=== PATIENT | female | born 1935 | race Caucasian/White ===

== ENCOUNTER 2017-09-05 10:47 | Outpatient (CLI) | payer MEDICARE, BC ==
--- NOTE | 2017-09-05 13:15 | SJPRAD ---
ONE VIEW CHEST RIGHT RIBS: History: Fall, pain. FINDINGS: One view chest. Atherosclerosis of the aorta. Normal cardiac silhouette. Pulmonary vessels and pulmon galen hilum are normal. Costophrenic angles are clear. There appears to be mass projecting over the mid mediastinal silhouette which may represent osteophyte. The possibility of a mediastinal mass cannot be excluded. Better interrogation with CT is recommended. There is no pneumothorax. There are no osse ous abnormalities. Scoliotic curvature of the spine is noted. Right ribs three views: Displaced fractures involving the anterolateral right 9th, 10th, and 11th rib s. Possible fracture involving the posterior right 12th rib. No associated pneumothorax. IMPRESSION: 1. Right rib fractures. No pneumothorax. 2. Possible mass projecting over the mediastinum. Chest CT is recommended. Code T. POS: SJ
== END 2017-09-05 10:48 | disposition home or self-care (01) ==
LOC: MWLC RAD 10:47
PROVIDERS: ATTEND Internal Medicine Geriatric Medicine
DX: M54.9 Dorsalgia, unspecified (principal); S22.31XD Fracture of one rib, right side, subsequent encounter for fracture with routine healing

== ENCOUNTER 2019-01-23 12:45 | Outpatient (CLI) | payer MEDICARE, BC ==
--- NOTE | 2019-01-23 13:15 | RAD ---
Right RIBS 3 views HISTORY: Fall. Right rib injury. FINDINGS: Mildly displaced fractures involve the posterolateral aspect of the right 10th, 11th, and 1 2th ribs. No evidence of pneumothorax. IMPRESSION: Right lower posterior rib fractures.
--- NOTE | 2019-01-23 13:17 | RAD ---
Chest 2 views HISTORY: Dementia. Dyspnea. Recent fall. FINDINGS: Cardiac silhouette and pulmonary vasculature upper limits of normal. Mediastinum is midline . Calcification in the aorta. Lungs are hyperinflated. No lobar consolidation, pneumothorax, or pleural fluid. Right lower posterior rib fractures not well visualized, better detailed on dedicated rib exam. IMPRESSION: Atherosclerosis and other chronic-type findings. No active cardiopulmonary abnormalities are demonstrated. Please see separate detailed report regarding right lower rib fractures.
== END 2019-01-23 12:46 | disposition home or self-care (01) ==
LOC: BICRAD 12:45
PROVIDERS: ATTEND Internal Medicine Geriatric Medicine
DX: F02.81 Dementia in other diseases classified elsewhere, unspecified severity, with behavioral disturbance (principal); R07.81 Pleurodynia; R41.82 Altered mental status, unspecified; S22.41XA Multiple fractures of ribs, right side, initial encounter for closed fracture; I70.90 Unspecified atherosclerosis
CPT/HCPCS: 36415; 71046; 80053; 84439; 84443; 85025

== ENCOUNTER 2019-12-08 17:34 | Inpatient (IN) | payer MEDICARE, BC ==
[2019-12-08 18:05] LABS: Mean Corpuscular Hemoglobin 32.9 pg (27.0-31.0); Mean Platelet Volume 9.6 fL (7.4-10.4); Platelet Count 245 thou/uL (130-400); RBC Distribution Width 12.5 % (11.5-14.5); Red Blood Cell (RBC) Count 4.56 mill/uL (4.20-5.40); White Blood Cell (WBC) Count 21.9 thou/uL (4.8-10.8)
--- NOTE | 2019-12-08 18:12 | RAD ---
EXAM: Portable chest PROVIDED CLINICAL HISTORY: Fever COMPARISON: 01/23/2019 FINDINGS: Cardiac and mediastinal silhouette is within normal limits. No focal consolidation, pleural fluid or pneumothorax evident. IMPRESSION: No evidence for an acute cardiopulmonary process.
[2019-12-08 18:25] LABS: Band 20 % (5-11); Lymphocytes 3 % (21-51); MDiff Complete? YES; Macrocytosis SLIGHT = 6-15 cells (100X) (0-5/hpf); Monocytes 7 % (0-10); Neutrophil 66 % (42-75); Platelet Morphology Comment Appears Adequate; Reactive Lymphocytes 4 % (0-10)
[2019-12-08 18:31] LABS: ALT (SGPT) 20 U/L (8-55); AST (SGOT) 39 U/L (5-34); Albumin 3.8 g/dL (3.4-4.8); Alkaline Phosphatase 72 U/L (40-110); Anion Gap 17 mmol/L (10-20); BUN (Urea Nitrogen) 26 mg/dL (9.8-20.1); Bilirubin, Total 0.6 mg/dL (0.2-1.2); Calc. Creatinine Clearance 0 mL/min (70-130); Calcium 9.5 mg/dL (7.8-10.44); Carbon Dioxide 24 mmol/L (23-31); Chloride 104 mmol/L (98-107); Estimated GFR-MDRD 36; Globulin 3.9 g/dL (2.4-3.5); Glucose 239 mg/dL (83-110); Potassium 4.4 mmol/L (3.5-5.1); Protein, Total 7.7 g/dL (6.0-8.3); Sodium 141 mmol/L (136-145)
--- NOTE | 2019-12-08 19:00 | CT ---
Exam: CT brain PROVIDED CLINICAL HISTORY: Altered mental status COMPARISON: None FINDINGS: The ventricular system is normal in size and morphology. No evidence for intracranial hemorrhage or mass effect. The extracranial soft tissues and osseous structures demonstrate no evidence for an acute abnormality. Chronic microvascular ischemic changes are seen involving the cerebral white matte r. IMPRESSION: No evidence for intracranial hemorrhage or mass effect.
[2019-12-08] MEDS ORDERED: cefTRIAXone\\ROCEPHIN 2 GM VIAL ONE (19:07)
[2019-12-08 19:48] LABS: Bilirubin Negative (Negative); Blood, Urine Negative (Negative); Clarity Clear (Clear); Glucose, Urine (Dipstick) 500 mg/dL (Negative); Leukocyte Negative Leu/uL (Negative); Nitrite Negative (Negative); Protein, Urine (Dipstick) 10 mg/dL (Neg-Trace); Urobilinogen Normal mg/dL (Less than 2)
[2019-12-08 20:55] LABS: Lactic Acid 2.6 mmol/L (0.5-2.2)
[2019-12-08] MEDS ORDERED: Azithromycin 500 MG VIAL ONE ×2 (21:19→21:21)
[2019-12-08] MEDS ORDERED: Acetaminophen 325 MG TAB PO PRN ×2 (22:44→22:47)
[2019-12-08] MEDS ORDERED: Ondansetron PF 4 MG/2 ML Vial IVP PRN (22:44)
[2019-12-08] MEDS ORDERED: Ondansetron ODT 4 MG TAB SL PRN (22:44)
[2019-12-08] MEDS ORDERED: hydrALAZINE 20 MG/ML VIAL SLOW IVP PRN (22:47)
[2019-12-08 23:00] VITALS: BMI 20.5
[2019-12-08] MEDS: Sodium Chloride 0.9% 1,000 ML IV SCH (23:36)
--- NOTE | 2019-12-09 00:15 | HP ---
PRIMARY CARE PHYSICIAN: Sky Floyd MD CHIEF COMPLAINT: Generalized weakness. HISTORY OF PRESENT ILLNESS: The history of present illness is taken entirely from the patient's and daughter who are at the bedside. The patient has advanced Alzheimer disease as well as severe hearing loss and as a result, is unable to give me a history. The patient's says that usually he will get her up at around 9 o'clock in the morning and then she will make her way to the kitchen to sit down to eat breakfast, but this time when she got up, she could barely stand up and she could barely walk. He managed to help her onto the commode and then later he brought her in to the kitchen. There, she would not eat or drink and she looked like "a dishrag." He took her back to the bathroom, where she seemed to be extremely weak. He called Dr. Floyd and she told him to bring her into the hospital. He noticed that she seemed to be leaning to the left side and that she has been having this cough that just started today. No fevers, no chills that they are aware of. No nausea, no vomiting, no diarrhea. When she was in the emergency room, she was found to have leukocytosis as well as an elevated creatinine and she is being admitted for probable pneumonia despite a normal chest x-ray. REVIEW OF SYSTEMS: All systems were reviewed and are negative except for that mentioned in the history of present illness. PAST MEDICAL HISTORY: Significant for Alzheimer disease, hypertension, and hypercholesterolemia. PAST SURGICAL HISTORY: Hysterectomy. ALLERGIES: KINA INHIBITOR, LISINOPRIL, AND GUAIFENESIN. SOCIAL HISTORY: She is a former smoker. She used to smoke about a pack a day for 40 years. Denies any alcohol use. She is , has 4 children and her states that she is a do not resuscitate. FAMILY HISTORY: Significant for familiar tremor, cancer in both sisters, unknown type. CURRENT MEDICATIONS: Include; 1. Alendronate 70 mg once weekly. 2. Astelin nasal spray daily. 3. Aricept 10 mg daily. 4. Aspirin 81 mg daily. 5. Levothyroxine 75 mcg p.o. daily. 6. Melatonin 10 mg at bedtime. 7. Metoprolol succinate 25 mg 1/2 tablet twice a day. 8. Namenda 10 mg twice a day. 9. Seroquel 25 mg twice a day. PHYSICAL EXAMINATION: GENERAL: She is awake and alert. She is very frail in appearance, unable to assess orientation. VITAL SIGNS: Blood pressure was 143/107, heart rate 86, respiratory rate of 22, temperature is 97.6, O2 saturation was 95% on room air. HEENT: Her pupils are equal, round, and reactive. Extraocular muscles are intact. Her sclerae anicteric. Throat, she has dry mucous membranes, but no erythema. She is edentulous. NECK: There is no adenopathy. No bruits. LUNGS: She has bilateral rhonchi as well as some rales. CARDIOVASCULAR: She has a normal S1 and S2. There is no S3 or S4. No murmurs, clicks, or rubs. ABDOMEN: Obese, it is soft, nontender, and nondistended. Positive for bowel sounds. There is no rebound, no guarding. No organomegaly. EXTREMITIES: She has trace edema. No calf tenderness. NEUROLOGICAL: Exam is nonfocal. SKIN AND INTEGUMENT: No skin changes. No rash. LABORATORY DATA: White blood cell count is 12.9, hemoglobin 15, hematocrit is 46.8, and platelet count is 245. Sodium 141, potassium 4.4, chloride is 104, CO2 is 25, BUN of 26, creatinine 1.4, glucose is 239. Urinalysis is essentially negative. On her chest x-ray, heart size is normal. She did have some flattening of her diaphragms potentially consistent with COPD, but possibly increased pulmonary vascular markings. This is by my reading. She had a CT scan of the brain, which was negative. ASSESSMENT: This is a pleasant 84-year-old female, who presents with generalized weakness, likely early pneumonia and early sepsis and acute kidney injury. 1. Bronchitis/early pneumonia. She has not had any recent hospitalizations. Therefore, we will go ahead and treat her for a community-acquired pneumonia or organisms and place her on azithromycin and Rocephin, DuoNebs as needed and gentle IV hydration. 2. Acute kidney injury. Again, gentle hydration and recheck her chemistry panel in the a.m. 3. Hypertension. Reconcile and restart her home medications as well as p.r.n. medicines. She will be also placed on DVT and GI prophylaxis and repeat a chest x-ray in the a.m.. Job ID: [id number]
[2019-12-09 05:35] LABS: Anion Gap 10 mmol/L (10-20); BUN (Urea Nitrogen) 18 mg/dL (9.8-20.1); Calc. Creatinine Clearance 42 mL/min (70-130); Carbon Dioxide 27 mmol/L (23-31); Chloride 110 mmol/L (98-107); Estimated GFR-MDRD 62; Glucose 118 mg/dL (83-110); Potassium 3.3 mmol/L (3.5-5.1); Sodium 144 mmol/L (136-145)
[2019-12-09 06:43] LABS: Band 11 % (5-11); Hemoglobin 12.3 g/dL (12.0-16.0); Lymphocytes 15 % (21-51); MDiff Complete? YES; Mean Corpuscular HGB CONC 31.6 g/dL (32.0-36.0); Mean Corpuscular Hemoglobin 32.1 pg (27.0-31.0); Mean Platelet Volume 9.6 fL (7.4-10.4); Neutrophil 74 % (42-75); Platelet Count 210 thou/uL (130-400); RBC Distribution Width 12.4 % (11.5-14.5); Red Blood Cell (RBC) Count 3.83 mill/uL (4.20-5.40); White Blood Cell (WBC) Count 15.5 thou/uL (4.8-10.8)
--- NOTE | 2019-12-09 07:35 | RAD ---
CHEST 1 VIEW: Date: 12/09/2019 INDICATION: History of cough. COMPARISON: Prior study dated 12/08/2019. FINDINGS: Chronic lung changes and cardiomegaly are similar appearing. No air space consolidation or pleural ef fusion is evident. No acute osseous abnormality is noted. IMPRESSION: Stable exam. POS: BH
[2019-12-09] MEDS: Heparin 5,000 UNITS/ML VIAL SC SCH ×3 (08:56→21:00)
[2019-12-09] MEDS ORDERED: Famotidine 20 MG TAB PO SCH (09:00)
[2019-12-09] MEDS: Sodium Chloride 0.9% 1,000 ML IV SCH (11:45)
--- NOTE | 2019-12-09 17:56 | PDOC.HOSPP ---
- Subjective Encounter Date: 12/09/19 Encounter Time: 17:55 Subjective: f/u for suspected PNA/bronchitis on Rocephin/Zithromax. - Objective Vital Signs & Weight: Vital Signs (12 hours) Temp Pulse Resp BP Pulse Ox 12/09/19 15:08 99.0 F 89 16 122/68 92 L 12/09/19 14:24 75 16 12/09/19 11:31 98.6 F 78 16 122/77 95 12/09/19 08:56 96 12/09/19 08:10 98.9 F 86 16 110/70 93 L 12/09/19 07:34 74 20 Weight Weight 123 lb 1 oz I&O: 12/08/19 12/09/19 12/10/19 06:59 06:59 06:59 Intake Total 600 387 Output Total 600 121 Balance 0 266 Result Diagrams: 12/09/19 04:47 12/09/19 04:47 Additional Labs: Microbiology 12/08/19 19:23 Nasal swab Influenza Types A,B Direct EIA - Final 12/08/19 19:23 Urine Straight Catheter Urine Culture - Preliminary NO GROWTH AT 12 HOURS 12/08/19 17:59 Venous blood - Left Arm Blood Culture - Preliminary Specimen has been received and culture in progress. No Growth to date. 12/08/19 17:55 Venous blood - Left Hand Blood Culture - Preliminary Specimen has been received and culture in progress. No Growth to date. Laboratory Tests 12/08/19 12/08/19 12/08/19 17:59 17:59 17:59 WBC 21.9 H Neutrophils % (Manual) 66 Band Neuts % (Manual) 20 H Potassium 4.4 BUN 26 H Creatinine 1.41 H Lactic Acid 3.6 H 12/08/19 12/09/19 20:31 04:47 WBC Neutrophils % (Manual) 74 Band Neuts % (Manual) 11 Potassium BUN Creatinine Lactic Acid 2.6 H Radiology Reviewed by me: Yes (PCXR - chronic changes, no acute infiltrate) Hospitalist ROS - Medication Medications: Active Medications Generic Name Dose Route Start Last Admin Trade Name Freq PRN Reason Stop Dose Admin Albuterol/Ipratropium 3 ml 12/09/19 01:00 12/09/19 14:24 Duoneb NEB 3 ml [id number] TANYA Administration Heparin Sodium (Porcine) 5,000 units 12/09/19 09:00 12/09/19 14:08 Heparin SC 5,000 units TID TANYA Administration Sodium Chloride 1,000 mls @ 75 mls/hr 12/08/19 23:00 12/09/19 11:45 Normal Saline 0.9% IV 1,000 mls .[id number] TANYA Administration - Exam General Appearance: awake alert Eye: PERRL, anicteric sclera ENT: normocephalic atraumatic, no oropharyngeal lesions Neck: supple, symmetric, no JVD, no thyromegaly, no lymphadenopathy Heart: RRR, no murmur, no gallops, no rubs, normal peripheral pulses Respiratory - other findings: diminished in bilat bases, occasional wheeze Gastrointestinal: soft, non-tender, non-distended, normal bowel sounds, no palpable masses Extremities: no cyanosis, no clubbing, no edema Skin: normal turgor, no lesions Neurological: no new deficit Neurological - other findings: aphasic, hearing loss(chronic) Musculoskeletal: generalized weakness Psychiatric: oriented to person Hosp A/P (1) CAP (community acquired pneumonia) Code(s): J18.9 - PNEUMONIA, UNSPECIFIED ORGANISM Status: Acute Qualifiers: Laterality: unspecified laterality Qualified Code(s): J18.9 - Pneumonia, unspecified organism Plan: Continue Rocephin/Zithromax, Duonebs, O2 supplementation (2) Acute respiratory failure with hypoxia Code(s): J96.01 - ACUTE RESPIRATORY FAILURE WITH HYPOXIA Status: Acute Plan: Secondary to #1, continue Duonebs/O2 (3) Acute kidney injury superimposed on CKD Code(s): N17.9 - ACUTE KIDNEY FAILURE, UNSPECIFIED; N18.9 - CHRONIC KIDNEY DISEASE, UNSPECIFIED Status: Acute Plan: Improved, continue IVF's, avoid nephrotoxic meds and limit contrast, serial creatinine (4) Hypokalemia Code(s): E87.6 - HYPOKALEMIA Status: Acute Plan: KCL 40meq BID - Plan plan discussed w/ family, continue antibiotics, PT/OT, manager social media, respiratory therapy, out of bed/ambulate, DVT proph w/SCDs Stable currently Continue Rocephin/Zithromax Continue Duonebs Continue IVF's PT evaluation for functional assessment AM lab: BMP, CBC
[2019-12-09] MEDS: Azelastine 137 MCG/Spray 30 ML NS SCH (20:58)
[2019-12-09] MEDS: cefTRIAXone\\ROCEPHIN 1 GM in Sodium Chloride 0.9% 100 ML IVPB SCH (20:58)
[2019-12-09] MEDS: Melatonin 3 MG TAB PO SCH (20:59)
[2019-12-09] MEDS: Azithromycin 500 MG in Sodium Chloride 0.9% 250 ML 250 ML IVPB SCH (20:59)
[2019-12-09] MEDS: Donepezil HCl 10 MG TAB PO SCH (21:00)
[2019-12-10] MEDS: Benzonatate 100 MG CAP PO PRN ×3 (01:09→15:36)
[2019-12-10] MEDS: Sodium Chloride 0.9% 1,000 ML IV SCH ×2 (03:43→15:36)
[2019-12-10] MEDS: Levothyroxine Sodium 75 MCG TAB PO SCH (05:19)
[2019-12-10 05:33] LABS: Band 3 % (5-11); Eosinophils 3 % (0-10); Hemoglobin 11.8 g/dL (12.0-16.0); Lymphocytes 15 % (21-51); MDiff Complete? YES; Mean Corpuscular HGB CONC 30.7 g/dL (32.0-36.0); Monocytes 11 % (0-10); Neutrophil 68 % (42-75); Platelet Count 179 thou/uL (130-400); RBC Distribution Width 12.5 % (11.5-14.5); Red Blood Cell (RBC) Count 3.69 mill/uL (4.20-5.40); White Blood Cell (WBC) Count 12.9 thou/uL (4.8-10.8)
[2019-12-10 05:51] LABS: Anion Gap 12 mmol/L (10-20); BUN (Urea Nitrogen) 11 mg/dL (9.8-20.1); Calc. Creatinine Clearance 46 mL/min (70-130); Carbon Dioxide 23 mmol/L (23-31); Chloride 111 mmol/L (98-107); Estimated GFR-MDRD 68; Glucose 94 mg/dL (83-110); Potassium 3.8 mmol/L (3.5-5.1); Sodium 142 mmol/L (136-145)
[2019-12-10] MEDS: Azelastine 137 MCG/Spray 30 ML NS SCH ×2 (08:51→20:01)
[2019-12-10] MEDS: Heparin 5,000 UNITS/ML VIAL SC SCH ×3 (08:51→20:02)
[2019-12-10] MEDS: Multivitamin W/ Minerals 1 TAB PO SCH (08:53)
[2019-12-10] MEDS: Aspirin 81 mg Enteric Coated Tablet PO SCH (08:53)
[2019-12-10] MEDS: Famotidine 20 MG TAB PO SCH (08:53)
--- NOTE | 2019-12-10 14:45 | PQF ---
JACK KIRKLANDYOLI DO [id number] SURG A- [id number] CLINICAL DOCUMENTATION IMPROVEMENT CLARIFICATION FORM: ICD-10 Updated PLEASE DO AN ADDENDUM TO THE PROGRESS NOTE WITH ANY DOCUMENTATION UPDATES OR ADDITIONS AND CARRY THROUGH TO DC SUMMARY. THANK YOU. DATE: 11/11/2019 ATTN: DR. Henrique JOSEPH Please exercise your independent, professional judgment in responding to the clarification form. Clinical indicators are provided on the bottom of this form for your review. Please check appropriate box(es): [ x ] Sepsis [ ] Severe sepsis with acute organ dysfunction of: (Examples: respiratory failure, encephalopathy, acute kidney failure, other) [ ] Septic Shock [ ] Other diagnosis [ ] Unable to determine In addition, please specify: Present on Admission (POA): [ x ] Yes [ ] No [ ] Unable to determine For continuity of documentation, please document condition throughout progress notes and discharge summary. Thank You. CLINICAL INDICATORS - SIGNS / SYMPTOMS / LABS / RESULTS AND LOCATION IN MR 3 WBC 21.9 3/ WBC 15.5 12/09 WBC 12.9 12/07 BANDS 20 3/ LACTIC ACID 3.6 > 2.6 12/07 ED REPORT: REPORTS INCREASED AMS TODAY. 100.3 FEVER ON EMS ARRIVAL //RESP 22-24, FAMILY REPORTS INCREASED WEAKNESS, COUGH X 1 DAY . ED PHYSICIAN FINAL DX: PNEUMONIA, SEPSIS 3 H&P (WILFREDO) ASSESSMENT: LIKELY EARLY PNEUMONIA AND EARLY SEPSIS AND ACUTE KIDNEY INJURY. 1). BRONCHITIS/EARLY PNEUMONIA. SHE HAS NOT HAD ANY RECENT HOSPITALIZATIONS. THEREFORE, WE WILL GO AHEAD AND TREAT HER FOR A COMMUNITY ACQUIRED PNEUMONIA OR ORGANISMS AND PLACE HER ON AZITHROMYCIN AND ROCEPHIN . NO FURTHER MENTION OF SEPSIS TO DATE RISK: DX ACUTE RESPIRATORY FAILURE W HYPOXIA, COMMUNITY ACQUIRED PNEUMONIA (JAKE/PN) 3 TREATMENT: ROCEPHIN IV (3/2 - PRESENT) ZITHROMAX IV (3/2 - PRESENT) NS IV FLUIDS (12/07 - PRESENT ) THANK YOU! IMAN (This form is maintained as a part of the permanent medical record) 2014 [employer]. All Rights Reserved [email or web address] [phone] [email or web address]
--- NOTE | 2019-12-10 17:42 | PDOC.HOSPP ---
- Subjective Encounter Date: 12/10/19 Encounter Time: 17:30 Subjective: f/u for PNA on current Rocephin/Zithromax. - Objective Vital Signs & Weight: Vital Signs (12 hours) Temp Pulse Resp BP Pulse Ox 12/10/19 15:24 98.4 F 87 18 147/85 H 96 12/10/19 12:31 80 16 12/10/19 11:25 99.2 F 88 22 H 161/94 H 97 12/10/19 08:50 94 L 12/10/19 07:16 98.6 F 93 18 160/94 H 94 L 12/10/19 06:39 79 16 Weight Weight 123 lb 1 oz I&O: 12/09/19 12/10/19 12/11/19 06:59 06:59 06:59 Intake Total 600 884 50 Output Total 600 313 Balance 0 571 50 Result Diagrams: 12/10/19 04:59 12/10/19 04:59 Additional Labs: Microbiology 12/08/19 19:23 Urine Straight Catheter Urine Culture - Final NO GROWTH AT 36 HOURS 12/08/19 19:23 Nasal swab Influenza Types A,B Direct EIA - Final 12/08/19 19:23 Urine Straight Catheter Urine Culture - Preliminary NO GROWTH AT 12 HOURS 12/08/19 17:59 Venous blood - Left Arm Blood Culture - Preliminary Specimen has been received and culture in progress. No Growth to date. 12/08/19 17:59 Venous blood - Left Arm Blood Culture - Preliminary NO GROWTH AT 48 HOURS 12/08/19 17:55 Venous blood - Left Hand Blood Culture - Preliminary Specimen has been received and culture in progress. No Growth to date. 12/08/19 17:55 Venous blood - Left Hand Blood Culture - Preliminary NO GROWTH AT 48 HOURS Laboratory Tests 12/08/19 12/08/19 12/08/19 17:59 17:59 17:59 WBC 21.9 H Neutrophils % (Manual) 66 Band Neuts % (Manual) 20 H Potassium 4.4 BUN 26 H Creatinine 1.41 H Lactic Acid 3.6 H 12/08/19 12/09/19 12/10/19 20:31 04:47 04:59 WBC 15.5 H Neutrophils % (Manual) 74 Band Neuts % (Manual) 11 3 L Potassium BUN Creatinine Lactic Acid 2.6 H Hospitalist ROS - Medication Medications: Active Medications Generic Name Dose Route Start Last Admin Trade Name Freq PRN Reason Stop Dose Admin Albuterol/Ipratropium 3 ml 12/09/19 01:00 12/10/19 12:31 Duoneb NEB 3 ml [id number] TANYA Administration Aspirin 81 mg 12/10/19 09:00 12/10/19 08:53 Ecotrin PO 81 mg QAM TANYA Administration Azelastine HCl 0 ml 12/09/19 21:00 12/10/19 08:51 Azelastine NS 1 spr BID TANYA Administration Benzonatate 100 mg 12/08/19 22:47 12/10/19 15:36 Tessalon PO 100 mg Q6H PRN Administration Cough Donepezil HCl 10 mg 12/09/19 21:00 12/09/19 21:00 Aricept PO 10 mg HS TANYA Administration Famotidine 20 mg 12/10/19 09:00 12/10/19 08:53 Pepcid PO 20 mg DAILY TANYA Administration Heparin Sodium (Porcine) 5,000 units 12/09/19 09:00 12/10/19 15:36 Heparin SC 5,000 units TID TANYA Administration Azithromycin 500 mg/ Sodium 250 mls @ 250 mls/hr 12/09/19 21:00 12/09/19 20: 59 Chloride IVPB 250 mls 2100 TANYA Administration Ceftriaxone Sodium 1 gm/ 100 mls @ 200 mls/hr 12/09/19 20:00 12/09/19 20:58 Sodium Chloride IVPB 100 mls 2000 TANYA Administration Sodium Chloride 1,000 mls @ 75 mls/hr 12/08/19 23:00 12/10/19 15:36 Normal Saline 0.9% IV 1,000 mls .[id number] TANYA Administration Iron/Minerals/Multivitamins 1 tab 12/10/19 09:00 12/10/19 08:53 Theragran M PO 1 tab DAILY TANYA Administration Levothyroxine Sodium 75 mcg 12/10/19 06:00 12/10/19 05:19 Synthroid PO 75 mcg 0600 TANYA Administration Melatonin 9 mg 12/09/19 21:00 12/09/19 20:59 Melatonin PO 9 mg HS TANYA Administration Memantine 10 mg 12/09/19 21:00 12/10/19 08:53 Namenda PO 10 mg BID TANYA Administration Potassium Chloride 40 meq 03/03/20 08:00 12/10/19 08:52 Klor-Con PO 40 meq BID-WM TANYA Administration Quetiapine Fumarate 25 mg 12/10/19 09:00 12/10/19 08:53 Seroquel PO 25 mg QAM TANYA Administration Quetiapine Fumarate 50 mg 12/09/19 21:00 12/09/19 21:00 Seroquel PO 50 mg HS TANYA Administration - Exam General Appearance: awake alert General - other findings: smiling, states a few words Eye: PERRL, anicteric sclera ENT: normocephalic atraumatic, no oropharyngeal lesions Neck: supple, symmetric, no JVD, no thyromegaly Heart: RRR, no murmur, no gallops, no rubs, normal peripheral pulses Respiratory: tachypneic Respiratory - other findings: few basilar coarse sounds Gastrointestinal: soft, non-tender, non-distended, normal bowel sounds, no palpable masses, no hepatomegaly Extremities: no cyanosis, no clubbing, no edema Skin: normal turgor, no lesions Neurological: cranial nerve grossly intact, no new deficit Musculoskeletal: normal tone, generalized weakness Psychiatric: oriented to person Hosp A/P (1) CAP (community acquired pneumonia) Code(s): J18.9 - PNEUMONIA, UNSPECIFIED ORGANISM Status: Acute Qualifiers: Laterality: unspecified laterality Qualified Code(s): J18.9 - Pneumonia, unspecified organism Plan: Continue Rocephin/Zithromax, pulmonary support, O2 supplementation (2) Acute respiratory failure with hypoxia Code(s): J96.01 - ACUTE RESPIRATORY FAILURE WITH HYPOXIA Status: Acute Plan: Continue O2 supplementation, wean as clinically indicated (3) Acute kidney injury superimposed on CKD Code(s): N17.9 - ACUTE KIDNEY FAILURE, UNSPECIFIED; N18.9 - CHRONIC KIDNEY DISEASE, UNSPECIFIED Status: Acute Plan: Resolving, continue low-volume IVF's (4) Hypokalemia Code(s): E87.6 - HYPOKALEMIA Status: Acute Plan: Resolving, continue serial monitoring - Plan plan discussed w/ family, continue antibiotics, PT/OT, social service technician, respiratory therapy, out of bed/ambulate, DVT proph w/SCDs Stable currently Continue Rocephin/Zithromax Continue Duonebs Continue IVF's another 24h PT evaluation for functional assessment AM lab: CBC
[2019-12-10] MEDS: cefTRIAXone\\ROCEPHIN 1 GM in Sodium Chloride 0.9% 100 ML IVPB SCH (19:57)
[2019-12-10] MEDS: Azithromycin 500 MG in Sodium Chloride 0.9% 250 ML 250 ML IVPB SCH (20:02)
[2019-12-10] MEDS: Donepezil HCl 10 MG TAB PO SCH (20:02)
[2019-12-10] MEDS: Melatonin 3 MG TAB PO SCH (20:02)
[2019-12-11] MEDS: Benzonatate 100 MG CAP PO PRN ×2 (04:00→16:23)
[2019-12-11] MEDS: Levothyroxine Sodium 75 MCG TAB PO SCH (05:31)
[2019-12-11 05:58] LABS: Hemoglobin 12.2 g/dL (12.0-16.0); Mean Corpuscular HGB CONC 32.9 g/dL (32.0-36.0); Mean Corpuscular Hemoglobin 33.4 pg (27.0-31.0); Mean Platelet Volume 9.7 fL (7.4-10.4); Platelet Count 193 thou/uL (130-400); RBC Distribution Width 12.3 % (11.5-14.5); Red Blood Cell (RBC) Count 3.64 mill/uL (4.20-5.40); White Blood Cell (WBC) Count 11.8 thou/uL (4.8-10.8)
[2019-12-11] MEDS: Sodium Chloride 0.9% 1,000 ML IV SCH ×2 (06:09→18:21)
[2019-12-11 08:35] LABS: Band 2 % (5-11); Eosinophils 1 % (0-10); Lymphocytes 11 % (21-51); MDiff Complete? YES; Monocytes 8 % (0-10); Neutrophil 74 % (42-75); RBC Morphology Normal; Reactive Lymphocytes 4 % (0-10)
[2019-12-11] MEDS: Famotidine 20 MG TAB PO SCH (08:44)
[2019-12-11] MEDS: Aspirin 81 mg Enteric Coated Tablet PO SCH (08:44)
[2019-12-11] MEDS: Azelastine 137 MCG/Spray 30 ML NS SCH ×2 (08:44→19:50)
[2019-12-11] MEDS: Multivitamin W/ Minerals 1 TAB PO SCH (08:44)
[2019-12-11] MEDS: Heparin 5,000 UNITS/ML VIAL SC SCH ×3 (08:45→19:58)
--- NOTE | 2019-12-11 15:35 | PDOC.HOSPP ---
- Subjective Encounter Date: 12/11/19 Encounter Time: 15:30 Subjective: f/u for sepsis due PNA on current Rocephin/Zithromax - Objective Vital Signs & Weight: Vital Signs (12 hours) Temp Pulse Resp BP Pulse Ox 12/11/19 15:24 98.1 F 97 18 154/96 H 91 L 12/11/19 13:20 96 16 94 L 12/11/19 10:26 98.4 F 96 14 152/93 H 94 L 12/11/19 07:26 92 L 12/11/19 07:25 92 16 92 L 12/11/19 07:00 97.7 F 96 14 169/99 H Weight Weight 123 lb 1 oz I&O: 12/10/19 12/11/19 12/12/19 06:59 06:59 06:59 Intake Total 884 1100 1790 Output Total 313 Balance 571 1100 1790 Result Diagrams: 12/11/19 05:09 12/10/19 04:59 Additional Labs: Microbiology 12/08/19 19:23 Urine Straight Catheter Urine Culture - Final NO GROWTH AT 36 HOURS 12/08/19 19:23 Nasal swab Influenza Types A,B Direct EIA - Final 12/08/19 19:23 Urine Straight Catheter Urine Culture - Preliminary NO GROWTH AT 12 HOURS 12/08/19 17:59 Venous blood - Left Arm Blood Culture - Preliminary Specimen has been received and culture in progress. No Growth to date. 12/08/19 17:59 Venous blood - Left Arm Blood Culture - Preliminary NO GROWTH AT 48 HOURS 12/08/19 17:55 Venous blood - Left Hand Blood Culture - Preliminary Specimen has been received and culture in progress. No Growth to date. 12/08/19 17:55 Venous blood - Left Hand Blood Culture - Preliminary NO GROWTH AT 48 HOURS Laboratory Tests 12/08/19 12/08/19 12/08/19 17:59 17:59 17:59 WBC 21.9 H Neutrophils % (Manual) 66 Band Neuts % (Manual) 20 H Potassium 4.4 BUN 26 H Creatinine 1.41 H Lactic Acid 3.6 H 12/08/19 12/09/19 12/10/19 20:31 04:47 04:59 WBC 15.5 H Neutrophils % (Manual) 74 Band Neuts % (Manual) 11 3 L Potassium BUN Creatinine Lactic Acid 2.6 H Hospitalist ROS - Medication Medications: Active Medications Generic Name Dose Route Start Last Admin Trade Name Freq PRN Reason Stop Dose Admin Albuterol/Ipratropium 3 ml 12/09/19 01:00 12/11/19 13:20 Duoneb NEB 3 ml [id number] TANYA Administration Aspirin 81 mg 12/10/19 09:00 12/11/19 08:44 Ecotrin PO 81 mg QAM TANYA Administration Azelastine HCl 0 ml 12/09/19 21:00 12/11/19 08:44 Azelastine NS 1 spr BID TANYA Administration Benzonatate 100 mg 12/08/19 22:47 12/11/19 04:00 Tessalon PO 100 mg Q6H PRN Administration Cough Donepezil HCl 10 mg 12/09/19 21:00 12/10/19 20:02 Aricept PO 10 mg HS TANYA Administration Famotidine 20 mg 12/10/19 09:00 12/11/19 08:44 Pepcid PO 20 mg DAILY TANYA Administration Heparin Sodium (Porcine) 5,000 units 12/09/19 09:00 12/11/19 08:45 Heparin SC 5,000 units TID TANYA Administration Azithromycin 500 mg/ Sodium 250 mls @ 250 mls/hr 12/09/19 21:00 12/10/19 20: 02 Chloride IVPB 250 mls 2100 TANYA Administration Ceftriaxone Sodium 1 gm/ 100 mls @ 200 mls/hr 12/09/19 20:00 12/10/19 19:57 Sodium Chloride IVPB 100 mls 2000 TANYA Administration Sodium Chloride 1,000 mls @ 75 mls/hr 12/08/19 23:00 12/11/19 06:09 Normal Saline 0.9% IV 1,000 mls .[id number] TANYA Administration Iron/Minerals/Multivitamins 1 tab 12/10/19 09:00 12/11/19 08:44 Theragran M PO 1 tab DAILY TANYA Administration Levothyroxine Sodium 75 mcg 12/10/19 06:00 12/11/19 05:31 Synthroid PO 75 mcg 0600 TANYA Administration Melatonin 9 mg 12/09/19 21:00 12/10/19 20:02 Melatonin PO 9 mg HS TANYA Administration Memantine 10 mg 12/09/19 21:00 12/11/19 08:44 Namenda PO 10 mg BID TANYA Administration Potassium Chloride 40 meq 12/10/19 08:00 12/11/19 08:44 Klor-Con PO 40 meq BID-WM TANYA Administration Quetiapine Fumarate 25 mg 12/10/19 09:00 12/11/19 08:44 Seroquel PO 25 mg QAM TANYA Administration Quetiapine Fumarate 50 mg 12/09/19 21:00 12/10/19 20:02 Seroquel PO 50 mg HS TANYA Administration - Exam General Appearance: NAD, awake alert Eye: PERRL, anicteric sclera ENT: normocephalic atraumatic, no oropharyngeal lesions Neck: supple, symmetric, no JVD, no thyromegaly Heart: RRR, no murmur, no gallops, no rubs, normal peripheral pulses Respiratory - other findings: diminished in bases, few scattered coarse sounds Gastrointestinal: soft, non-tender, non-distended, normal bowel sounds, no palpable masses Extremities: no cyanosis, no clubbing, no edema Skin: normal turgor, no lesions Neurological: cranial nerve grossly intact, no new deficit Musculoskeletal: normal tone, generalized weakness Psychiatric: oriented to person Hosp A/P (1) CAP (community acquired pneumonia) Code(s): J18.9 - PNEUMONIA, UNSPECIFIED ORGANISM Status: Acute Qualifiers: Laterality: unspecified laterality Qualified Code(s): J18.9 - Pneumonia, unspecified organism Plan: Continue Rocephin/Zithromax, Duonebs, O2 support (2) Acute respiratory failure with hypoxia Code(s): J96.01 - ACUTE RESPIRATORY FAILURE WITH HYPOXIA Status: Acute (3) Acute kidney injury superimposed on CKD Code(s): N17.9 - ACUTE KIDNEY FAILURE, UNSPECIFIED; N18.9 - CHRONIC KIDNEY DISEASE, UNSPECIFIED Status: Acute (4) Hypokalemia Code(s): E87.6 - HYPOKALEMIA Status: Acute (5) Sepsis due to pneumonia Code(s): J18.9 - PNEUMONIA, UNSPECIFIED ORGANISM; A41.9 - SEPSIS, UNSPECIFIED ORGANISM Status: Acute Plan: Improved, continue mgmt as outlined in #1 - Plan plan discussed w/ family, continue antibiotics, PT/OT, marriage and family social worker, respiratory therapy, out of bed/ambulate, DVT proph w/SCDs Stable currently Continue Rocephin/Zithromax Continue Duonebs Continue IVF's another 24h PT evaluation for functional assessment AM lab: CBC
[2019-12-11] MEDS: cefTRIAXone\\ROCEPHIN 1 GM in Sodium Chloride 0.9% 100 ML IVPB SCH (19:46)
[2019-12-11] MEDS: Azithromycin 250 MG TAB PO SCH (19:53)
[2019-12-11] MEDS: Azithromycin 500 MG in Sodium Chloride 0.9% 250 ML 250 ML IVPB SCH (19:53)
[2019-12-11] MEDS: Melatonin 3 MG TAB PO SCH (19:55)
[2019-12-11] MEDS: Donepezil HCl 10 MG TAB PO SCH (19:58)
--- NOTE | 2019-12-11 20:47 | PDOC.EVN ---
Event Note - Event Note Event Note: Notified by RN, patient with HR in 110s. She has alzheimer's. Smiling and does not appear to be in distress. BP normal and afebrile. Will obtain EKG and BMP as well as Mg+.
[2019-12-11 21:23] LABS: Lactic Acid 2.5 mmol/L (0.5-2.2)
[2019-12-11 21:31] LABS: Anion Gap 13 mmol/L (10-20); BUN (Urea Nitrogen) 7 mg/dL (9.8-20.1); Calc. Creatinine Clearance 47 mL/min (70-130); Calcium 8.6 mg/dL (7.8-10.44); Carbon Dioxide 27 mmol/L (23-31); Chloride 104 mmol/L (98-107); Estimated GFR-MDRD 69; Glucose 234 mg/dL (83-110); Magnesium 1.8 mg/dL (1.6-2.6); Potassium 3.6 mmol/L (3.5-5.1); Sodium 140 mmol/L (136-145)
[2019-12-12] MEDS: Sodium Chloride 0.9% 1,000 ML IV SCH (05:12)
[2019-12-12] MEDS: Levothyroxine Sodium 75 MCG TAB PO SCH (05:15)
[2019-12-12 05:19] LABS: Band 1 % (5-11); Eosinophils 4 % (0-10); Hemoglobin 12.6 g/dL (12.0-16.0); Lymphocytes 21 % (21-51); MDiff Complete? YES; Mean Corpuscular HGB CONC 30.5 g/dL (32.0-36.0); Mean Platelet Volume 9.5 fL (7.4-10.4); Monocytes 8 % (0-10); Neutrophil 66 % (42-75); Platelet Count 238 thou/uL (130-400); RBC Distribution Width 12.4 % (11.5-14.5); Red Blood Cell (RBC) Count 4.05 mill/uL (4.20-5.40); White Blood Cell (WBC) Count 10.8 thou/uL (4.8-10.8)
[2019-12-12] MEDS: Aspirin 81 mg Enteric Coated Tablet PO SCH (08:10)
[2019-12-12] MEDS: Multivitamin W/ Minerals 1 TAB PO SCH (08:11)
[2019-12-12] MEDS: Heparin 5,000 UNITS/ML VIAL SC SCH ×3 (08:13→22:20)
[2019-12-12] MEDS: Famotidine 20 MG TAB PO SCH (08:13)
[2019-12-12] MEDS: Azelastine 137 MCG/Spray 30 ML NS SCH ×2 (08:14→22:23)
[2019-12-12] MEDS ORDERED: Sodium Chloride 0.9% 1,000 ML IV SCH (17:11)
--- NOTE | 2019-12-12 17:32 | PDOC.HOSPP ---
- Subjective Encounter Date: 12/12/19 Encounter Time: 17:10 Subjective: f/u for PNA/hypoxia on current Rocephin/Zithromax. Was transferred to [facility] overnight for tachycardia but SR noted on all strips. - Objective Vital Signs & Weight: Vital Signs (12 hours) Temp Pulse Resp BP Pulse Ox 12/12/19 15:43 98.9 F 92 23 H 178/92 H 96 12/12/19 13:16 79 16 93 L 12/12/19 11:29 98.1 F 81 18 138/97 H 94 L 12/12/19 08:05 97.5 F L 90 18 131/77 95 12/12/19 07:35 95 12/12/19 06:49 94 L 12/12/19 06:47 89 16 94 L Weight Weight 129 lb 3.2 oz I&O: 12/11/19 12/12/19 12/13/19 06:59 06:59 06:59 Intake Total 1100 3650 Balance 1100 3650 Result Diagrams: 12/12/19 04:28 12/11/19 21:00 Additional Labs: Microbiology 12/08/19 19:23 Urine Straight Catheter Urine Culture - Final NO GROWTH AT 36 HOURS 12/08/19 19:23 Nasal swab Influenza Types A,B Direct EIA - Final 12/08/19 19:23 Urine Straight Catheter Urine Culture - Preliminary NO GROWTH AT 12 HOURS 12/08/19 17:59 Venous blood - Left Arm Blood Culture - Preliminary Specimen has been received and culture in progress. No Growth to date. 12/08/19 17:59 Venous blood - Left Arm Blood Culture - Preliminary NO GROWTH AT 48 HOURS 12/08/19 17:55 Venous blood - Left Hand Blood Culture - Preliminary Specimen has been received and culture in progress. No Growth to date. 12/08/19 17:55 Venous blood - Left Hand Blood Culture - Preliminary NO GROWTH AT 48 HOURS Laboratory Tests 12/08/19 12/08/19 12/08/19 17:59 17:59 17:59 WBC 21.9 H Neutrophils % (Manual) 66 Band Neuts % (Manual) 20 H Potassium 4.4 BUN 26 H Creatinine 1.41 H Lactic Acid 3.6 H 12/08/19 12/09/19 12/10/19 20:31 04:47 04:59 WBC 15.5 H Neutrophils % (Manual) 74 Band Neuts % (Manual) 11 3 L Potassium BUN Creatinine Lactic Acid 2.6 H EKG Reviewed by me: Yes (Tele - SR, intermittent sinus tach) Hospitalist ROS - Medication Medications: Active Medications Generic Name Dose Route Start Last Admin Trade Name Freq PRN Reason Stop Dose Admin Albuterol/Ipratropium 3 ml 12/09/19 01:00 12/12/19 13:16 Duoneb NEB 3 ml [id number] TANYA Administration Aspirin 81 mg 12/10/19 09:00 12/12/19 08:10 Ecotrin PO 81 mg QAM TANYA Administration Azelastine HCl 0 ml 12/09/19 21:00 12/12/19 08:14 Azelastine NS 1 spr BID TANYA Administration Azithromycin 500 mg 12/11/19 21:00 12/11/19 19:53 Zithromax PO 500 mg 2100 TANYA Administration Benzonatate 100 mg 12/08/19 22:47 12/11/19 16:23 Tessalon PO 100 mg Q6H PRN Administration Cough Donepezil HCl 10 mg 12/09/19 21:00 12/11/19 19:58 Aricept PO 10 mg HS TANYA Administration Famotidine 20 mg 12/10/19 09:00 12/12/19 08:13 Pepcid PO 20 mg DAILY TANYA Administration Heparin Sodium (Porcine) 5,000 units 12/09/19 09:00 12/12/19 14:05 Heparin SC 5,000 units TID TANYA Administration Azithromycin 500 mg/ Sodium 250 mls @ 250 mls/hr 12/09/19 21:00 12/11/19 19: 53 Chloride IVPB Not Given 2100 TANYA Ceftriaxone Sodium 1 gm/ 100 mls @ 200 mls/hr 12/09/19 20:00 12/11/19 19:46 Sodium Chloride IVPB 100 mls 2000 TANYA Administration Iron/Minerals/Multivitamins 1 tab 12/10/19 09:00 12/12/19 08:11 Theragran M PO 1 tab DAILY TANYA Administration Levothyroxine Sodium 75 mcg 12/10/19 06:00 12/12/19 05:15 Synthroid PO 75 mcg 0600 TANYA Administration Melatonin 9 mg 12/09/19 21:00 12/11/19 19:55 Melatonin PO 9 mg HS TANYA Administration Memantine 10 mg 12/09/19 21:00 12/12/19 08:11 Namenda PO 10 mg BID TANYA Administration Potassium Chloride 40 meq 12/10/19 08:00 12/12/19 08:10 Klor-Con PO 40 meq BID-WM TANYA Administration Quetiapine Fumarate 25 mg 12/10/19 09:00 12/12/19 08:11 Seroquel PO 25 mg QAM TANYA Administration Quetiapine Fumarate 50 mg 12/09/19 21:00 12/11/19 19:57 Seroquel PO 50 mg HS TANYA Administration - Exam General Appearance: NAD, awake alert Eye: PERRL, anicteric sclera ENT: normocephalic atraumatic, no oropharyngeal lesions Neck: supple, symmetric, no JVD, no thyromegaly Heart: RRR, no murmur, no gallops, no rubs, normal peripheral pulses Respiratory: tachypneic Respiratory - other findings: scattered coarse sounds, diminished in bases Gastrointestinal: soft, non-tender, non-distended, normal bowel sounds, no palpable masses Extremities: no cyanosis, no clubbing, no edema Skin: normal turgor, no lesions Neurological: cranial nerve grossly intact, no new deficit Musculoskeletal: generalized weakness, diffuse muscle atrophy Psychiatric: oriented to person Hosp A/P (1) CAP (community acquired pneumonia) Code(s): J18.9 - PNEUMONIA, UNSPECIFIED ORGANISM Status: Acute Qualifiers: Laterality: unspecified laterality Qualified Code(s): J18.9 - Pneumonia, unspecified organism Plan: Continue Rocephin/Zithromax another 24h (2) Acute respiratory failure with hypoxia Code(s): J96.01 - ACUTE RESPIRATORY FAILURE WITH HYPOXIA Status: Acute Plan: Continue O2 supplementation, may need home O2 (3) Acute kidney injury superimposed on CKD Code(s): N17.9 - ACUTE KIDNEY FAILURE, UNSPECIFIED; N18.9 - CHRONIC KIDNEY DISEASE, UNSPECIFIED Status: Acute Plan: Improved, saline lock IVF (4) Hypokalemia Code(s): E87.6 - HYPOKALEMIA Status: Acute Plan: Resolving (5) Sepsis due to pneumonia Code(s): J18.9 - PNEUMONIA, UNSPECIFIED ORGANISM; A41.9 - SEPSIS, UNSPECIFIED ORGANISM Status: Acute Plan: Improved, continue IV abx as outlined in #1 - Plan plan discussed w/ family, continue antibiotics, PT/OT, social problems specialist, respiratory therapy, DVT proph w/SCDs Stable currently Continue Rocephin/Zithromax another 24h Continue Duonebs Continue IVF's another 24h PT evaluation for functional assessment Prednisone 40mg x 1 now then daily Likely home in am
[2019-12-12] MEDS ORDERED: predniSONE 20 MG TAB PO SCH (17:45)
[2019-12-12] MEDS: cefTRIAXone\\ROCEPHIN 1 GM in Sodium Chloride 0.9% 100 ML IVPB SCH (20:50)
[2019-12-12] MEDS: Azithromycin 500 MG in Sodium Chloride 0.9% 250 ML 250 ML IVPB SCH (21:01)
[2019-12-12] MEDS: Azithromycin 250 MG TAB PO SCH (21:33)
[2019-12-12] MEDS: Donepezil HCl 10 MG TAB PO SCH (22:20)
[2019-12-12] MEDS: Melatonin 3 MG TAB PO SCH (22:21)
[2019-12-13] MEDS: Levothyroxine Sodium 75 MCG TAB PO SCH ×2 (05:47→12:01)
[2019-12-13] MEDS ORDERED: predniSONE 20 MG TAB PO SCH (08:00)
[2019-12-13] MEDS: Multivitamin W/ Minerals 1 TAB PO SCH (08:38)
[2019-12-13] MEDS: Famotidine 20 MG TAB PO SCH (08:38)
[2019-12-13] MEDS: Aspirin 81 mg Enteric Coated Tablet PO SCH (08:38)
[2019-12-13] MEDS: Heparin 5,000 UNITS/ML VIAL SC SCH (08:39)
[2019-12-13] MEDS: Azelastine 137 MCG/Spray 30 ML NS SCH (08:47)
[2019-12-13 11:48] VITALS: TEMP 97.7
[2019-12-13 15:42] VITALS: BP 139/88
--- NOTE | 2019-12-14 01:27 | DIS ---
DATE OF ADMISSION: 12/08/2019 DATE OF DISCHARGE: 12/13/2019 DISCHARGE DIAGNOSES: 1. Community-acquired bacterial pneumonia suspected gram-positive cocci, improved. 2. Acute hypoxic respiratory failure on oxygen supplementation at 2 L/minute by nasal cannula. 3. Acute kidney injury on chronic kidney disease, improved. 4. Hypokalemia, resolved. 5. Sepsis secondary to pneumonia, resolved. 6. Advanced Alzheimer's dementia. 7. Deconditioning. CONSULTATIONS: None. PERTINENT LAB AND X-RAY FINDINGS: Potassium ranged between 3.3 to 4.4. Creatinine ranged between 0.79 to 1.41. Estimated GFR ranged between 36 to 69. Lactic acid level ranged between 2.5 to 2.6, magnesium level 1.8. CBC showed a white blood cell count ranged between 10.8 to 21.9, hemoglobin ranged between 11.8 to 15. Blood cultures x2 dated 12/08/2019, showed no growth at 48 hours. Influenza A and B antigen, 12/08/2019. Urine culture dated 12/08/2019, showed no growth at [address] of the brain without contrast dated 12/08/2019, showed no acute intracranial process. Portable chest x-ray dated 12/08/2019, showed no acute cardiopulmonary process. Portable chest x-ray dated 12/09/2019, showed chronic lung changes, similar in appearance to previous chest imaging. HOSPITAL COURSE: The patient was initially admitted after presenting with generalized weakness with initial concern for infectious process and underlying pneumonia with leukocytosis. Chest imaging was not indicative of prominent infiltrate, however, patient was placed on Rocephin and Zithromax and given oxygen supplementation in addition to bronchodilator therapy. The patient was slow to clinically improve. However, leukocytosis resolved with antibiotic therapy and patient remained afebrile over the last 48 hours. Blood and urine cultures were negative as stated previously and the patient overall clinically stabilized. The patient did exhibit persistent generalized weakness with recommendations for ongoing home health services including physical therapy at discharge. The patient also evaluated for home oxygen with baseline requirement of 2 L/minute by nasal cannula while hospitalized. I have examined the patient at the time of discharge and discussed followup instructions. Family verbalized understanding and agreement ready for discharge on 12/13/2019. DISCHARGE MEDICATIONS: 1. Fosamax 70 mg p.o. q.7 days. 2. Enteric-coated aspirin 81 mg p.o. daily. 3. Azelastine 137 mcg 1 spray intranasally daily. 4. Donepezil 10 mg p.o. at bedtime. 5. Levothyroxine 75 mcg p.o. daily. 6. Melatonin 9 mg p.o. at bedtime. 7. Memantine 10 mg p.o. b.i.d. 8. Lopressor 12.5 mg p.o. b.i.d.. 9. Multivitamin 1 tablet p.o. daily. 10. Seroquel 25 mg p.o. q.a.m. and 50 mg p.o. at bedtime. 11. Zithromax 500 mg p.o. daily x7 days. 12. Tessalon Perles 100 mg p.o. q.6 hours p.r.n. 13. Prednisone 20 mg take 2 tablets p.o. daily x3 days, followed by 1 tablet p.o. daily x3 days, followed by half a tablet p.o. daily x3 days. FOLLOWUP: The patient may follow up with Dr. Floyd within 7 days of discharge. CONDITION ON DISCHARGE: Fair. ACTIVITY: Rolling walker with standby/contact guard assistance with high fall risk precautions. DIET: Regular. CODE STATUS: Do not attempt resuscitation. DISPOSITION: Home with Home Health Services including physical therapy on 12/13/2019. TIME SPENT: Total time preparing and coordinating discharge, 34 minutes. Job ID: [id number]
== END 2019-12-13 16:45 | disposition home health service (06) | DRG 871 ==
LOC: ERS 17:34 → SURG A 21:57 → 2NO 12-11 22:23 → SURG A 12-12 21:17
PROVIDERS: ADMIT Internal Medicine; ATTEND Family Medicine
DX: A41.89 Other specified sepsis (principal); J15.6 Pneumonia due to other Gram-negative bacteria; J96.01 Acute respiratory failure with hypoxia; R40.2342 Coma scale, best motor response, flexion withdrawal, at arrival to emergency department; R40.2212 Coma scale, best verbal response, none, at arrival to emergency department; N17.9 Acute kidney failure, unspecified; E87.6 Hypokalemia; G30.9 Alzheimer's disease, unspecified; F02.80 Dementia in other diseases classified elsewhere, unspecified severity, without behavioral disturbance, psychotic disturbance, mood disturbance, and anxiety; Z66 Do not resuscitate; Z90.710 Acquired absence of both cervix and uterus; Z88.8 Allergy status to other drugs, medicaments and biological substances; Z87.891 Personal history of nicotine dependence; R40.2132 Coma scale, eyes open, to sound, at arrival to emergency department; I12.9 Hypertensive chronic kidney disease with stage 1 through stage 4 chronic kidney disease, or unspecified chronic kidney disease; N18.9 Chronic kidney disease, unspecified; E78.00 Pure hypercholesterolemia, unspecified; Z80.9 Family history of malignant neoplasm, unspecified
CPT/HCPCS: 36415; 51701; 70450; 71045; 80048; 80053; 81003; 83605; 83735; 85007; 85025; 85027; 87040; 87086; 87804; 93005; 93010; 96365; 96367; A4353; J0456; J0696; J1644; J3490; J7050; J7512; J7620